=== PATIENT | male | born 1950 | race Caucasian/White ===

== ENCOUNTER 2019-08-10 05:46 | Day surgery (SDC) | payer MEDICARE, BC ==
[~2019-08-10] VITALS: Ht 175.3 cm; Wt 82.2 kg
[2019-08-10] VITALS (9 sets, daily range): BP systolic 117–139; BP diastolic 77–94
--- NOTE | 2019-08-10 06:15 | NUR ---
Pt starting taking oxycodone yesterday but does not know the dosage. Pt takes no other medications.
[2019-08-10] MEDS ORDERED: OXYC-580 PO (08:45)
[2019-08-10 09:35] LABS: AMYLASE,BODY FLUID 22 U/L; LIPASE,BODY FLUID 22 U/L; TOTAL PROTEIN,BODY FLUID 3.5 G/DL
[2019-08-10 10:12] LABS: GLUCOSE,BODY FLUID 122 MG/DL
[2019-08-10 10:20] LABS: LYMPHOCYTES,BODY FLUID 95 %; NEUTROPHILS,BODY FLUID 5 %
--- NOTE | 2019-08-10 10:20 | NUR ---
Paracentesis done. Pt tolerated procedure well. Dc'd in stable condition with belongings.
[2019-08-10 10:25] LABS: BFAPPEAR BLOODY
[2019-08-10 10:26] LABS: BF MESOTHELIAL CELLS FEW; BF RBC COUNT 87250 /CU MM; BF WBC COUNT 322 /CU MM (0-1000); BFCOLOR RED; BFVOLUME 34 ML; MONOCYTES,BODY FLUID 0 %
== END 2019-08-10 10:10 | disposition home or self-care (01) ==
LOC: SSTAY O 05:46
PROVIDERS: ATTEND Radiology Diagnostic Radiology
DX: R18.8 Other ascites (principal); I10 Essential (primary) hypertension; Z88.5 Allergy status to narcotic agent; Z88.8 Allergy status to other drugs, medicaments and biological substances; Z85.72 Personal history of non-Hodgkin lymphomas; Z79.899 Other long term (current) drug therapy
CPT/HCPCS: 49083; 82042; 82150; 82945; 83690; 84157; 87070; 89051; C1729

== ENCOUNTER 2019-08-29 07:40 | Day surgery (SDC) | payer MEDICARE, BC ==
[~2019-08-29] VITALS: Ht 175.3 cm; Wt 83.1 kg
[2019-08-29] VITALS (8 sets, daily range): BP systolic 110–129; BP diastolic 62–78
[~2019-08-29 07:40] MED LIST: OXYC-580 PO
[2019-08-29] MEDS ORDERED: SPIR25TA5 PO (08:03)
[2019-08-29] MEDS ORDERED: ALLO300T2 PO (08:04)
[2019-08-29] MEDS ORDERED: LENA20CA (08:05)
[2019-08-29] MEDS ORDERED: normal saline 1000ml 1,000 ML IV PRN (08:10)
[2019-08-29] MEDS: albumin 25% 100mL bottle x 1 IV PRN ×2 (09:47→09:53)
== END 2019-08-29 10:55 | disposition home or self-care (01) ==
LOC: SSTAY O 07:40
PROVIDERS: ATTEND Radiology Vascular & Interventional Radiology
DX: R18.8 Other ascites (principal); Z88.5 Allergy status to narcotic agent
CPT/HCPCS: 49083; C1729; J7030; P9047

== ENCOUNTER 2019-09-12 06:46 | Day surgery (SDC) | payer MEDICARE, BC ==
[~2019-09-12] VITALS: Ht 175.3 cm; Wt 76.4 kg
[2019-09-12] VITALS (8 sets, daily range): BP systolic 98–114; BP diastolic 60–72
[~2019-09-12 06:46] MED LIST changes: +ALLO300T2 PO; +LENA20CA; +SPIR25TA5 PO
[2019-09-12] MEDS ORDERED: normal saline 1000ml 1,000 ML IV PRN (07:00)
[2019-09-12] MEDS ORDERED: albumin 25% 100mL bottle x 1 IV PRN (07:00)
== END 2019-09-12 10:50 | disposition home or self-care (01) ==
LOC: SSTAY O 06:46
PROVIDERS: ATTEND Radiology Vascular & Interventional Radiology
DX: R18.8 Other ascites (principal)
CPT/HCPCS: 49083; C1729; J7030; P9047

== ENCOUNTER 2019-10-05 08:07 | Day surgery (SDC) | payer MEDICARE, BC ==
[~2019-10-05] VITALS: Ht 175.3 cm; Wt 75.2 kg
[2019-10-05 08:32] VITALS: BP 116/71
[2019-10-05] MEDS ORDERED: albumin 25% 100mL bottle x 1 IV PRN (08:40)
[2019-10-05] MEDS ORDERED: normal saline 1000ml 1,000 ML IV PRN (08:45)
[2019-10-05 09:28] VITALS: BP 103/45
[2019-10-05 09:45] VITALS: BP 106/71
[2019-10-05 10:00] VITALS: BP 106/72
[2019-10-05 10:15] VITALS: BP 108/70
== END 2019-10-05 11:30 | disposition home or self-care (01) ==
LOC: SSTAY O 08:07
PROVIDERS: ATTEND Radiology Vascular & Interventional Radiology
DX: R18.8 Other ascites (principal); I10 Essential (primary) hypertension; Z79.899 Other long term (current) drug therapy; Z85.72 Personal history of non-Hodgkin lymphomas; Z72.89 Other problems related to lifestyle; Z88.5 Allergy status to narcotic agent; Z88.8 Allergy status to other drugs, medicaments and biological substances
CPT/HCPCS: 49083; C1729; P9047

== ENCOUNTER → 2023-10-20 | Outpatient (CLI) | payer MEDICARE, BC ==
[~2023-10-20] MED LIST changes: +OXYC-481 PO; -OXYC-580 PO; +iohexol 300 MG/1 ML 50ml polymer ONE; +iohexol 300mg/ml 100ml inj. ONE
== END | disposition home or self-care (01) ==
LOC: RAD 12:41
PROVIDERS: ATTEND Specialist
DX: Z08 Encounter for follow-up examination after completed treatment for malignant neoplasm (principal); J34.2 Deviated nasal septum; I25.10 Atherosclerotic heart disease of native coronary artery without angina pectoris; E04.1 Nontoxic single thyroid nodule; K76.89 Other specified diseases of liver; K57.30 Diverticulosis of large intestine without perforation or abscess without bleeding; N40.0 Benign prostatic hyperplasia without lower urinary tract symptoms; N28.1 Cyst of kidney, acquired
CPT/HCPCS: 70487; 71260; 74177; J3490; Q9967